=== PATIENT | female | born 1990 | race American Indian/Alaskan Native ===

== ENCOUNTER 2017-08-26 18:30 | Emergency (ER) | payer MEDICAID ==
[2017-08-26] MEDS ORDERED: ASPIRIN PO ONE (18:47)
[2017-08-26 19:12] LABS: Basophils % (Auto) 0.2 % (0.0-1.8); Eosinophils % (Auto) 0.4 % (0.0-4.3); Hemoglobin 12.6 gm/dl (10.1-14.3); Lymphocytes # (Auto) 2.2 K/mm3 (1.2-5.4); Lymphocytes % (Auto) 24.2 % (13.4-35.0); Mean Corpuscular HGB Conc 34 % (30-34); Mean Corpuscular Hemoglobin 31 pg (28-32); Mean Corpuscular Volume 92 fl (79-97); Monocytes # (Auto) 0.5 K/mm3 (0.0-0.8); Monocytes % (Auto) 5.8 % (0.0-7.3); Platelet Count 242 K/mm3 (140-440); Red Blood Count 4.03 M/mm3 (3.65-5.03); Red Cell Distribution Width 12.9 % (13.2-15.2)
[2017-08-26 19:35] LABS: BUN/Creatinine Ratio 21; Blood Urea Nitrogen 15 mg/dL (7-17); Calcium 9.7 mg/dL (8.4-10.2); Hemolysis Index 12
[2017-08-26 19:46] LABS: Free T4 (Free Thyroxine) 1.25 ng/dL (0.76-1.46)
[2017-08-26 21:07] LABS: Bacteria,Urine 1+ /HPF (Negative); Bilirubin,Urine NEG (Negative); Blood,Urine NEG (Negative); Color,Urine Yellow (Yellow); Protein,Urine <15 mg/dL mg/dL (Negative); Urobilinogen,Urine < 2.0 mg/dL (<2.0)
[2017-08-26 21:19] LABS: HCG Qualitative,Urine Negative (Negative)
[2017-08-27] MEDS ORDERED: ASPIRIN ONE (02:03)
--- NOTE | 2017-08-27 02:28 | Emergency Department Report ---
HPI - General Chief Complaint: Chest Pain Time Seen by Provider: 08/27/17 02:08 - HPI HPI: 26-year-old female presents to the ER with left-sided chest pain, started earlier this morning, pain was 8 out of 10, sharp without radiation. Patient denies any shortness of breath, nausea, vomiting, diaphoresis with her symptoms. Patient did not take any medications for these symptoms. Patient denies any alleviating or exacerbating factors. ED Past Medical Hx - Past Medical History Previous Medical History?: No Hx Hypertension: No - Surgical History Past Surgical History?: No - Social History Smoking Status: Never Smoker Substance Use Type: None - Medications Home Medications: Home Medications Medication Instructions Recorded Confirmed Last Taken Type Ketorolac [Toradol] 10 mg PO Q6H PRN #20 tablet 08/27/17 Unknown Rx ED Review of Systems ROS: Stated complaint: CHEST PAIN Other details as noted in HPI Comment: All other systems reviewed and negative Cardiovascular: chest pain Gastrointestinal: denies: abdominal pain, nausea, vomiting Physical Exam - Physical Exam Vital Signs: Vital Signs 08/26/17 08/27/17 08/27/17 18:43 01:05 01:15 Temperature 98.6 F Pulse Rate 92 H 84 Respiratory 18 13 Rate Blood Pressure 118/71 109/73 Blood Pressure [Left] O2 Sat by Pulse 100 86 98 Oximetry 08/27/17 08/27/17 08/27/17 01:28 01:31 01:37 Temperature 98.4 F Pulse Rate 96 H 87 Respiratory 19 18 Rate Blood Pressure 117/67 Blood Pressure 109/73 [Left] O2 Sat by Pulse 98 94 Oximetry 08/27/17 08/27/17 01:45 02:00 Temperature Pulse Rate 89 110 H Respiratory 17 17 Rate Blood Pressure 117/67 108/60 Blood Pressure [Left] O2 Sat by Pulse 99 99 Oximetry Physical Exam: - Physical Exam Physical Exam: - General Limitations: No Limitations General appearance: alert, in no apparent distress. - Head Head exam: Present: atraumatic, normocephalic - Eye Eye exam: Present: normal appearance - ENT ENT exam: Present: mucous membranes moist - Neck Neck exam: Present: normal inspection - Respiratory Respiratory exam: Present: normal lung sounds bilaterally. Absent: respiratory distress - Cardiovascular Cardiovascular Exam: Present: normal rhythm, normal rate. Absent: systolic murmur, diastolic murmur, rubs, gallop - GI/Abdominal GI/Abdominal exam: Present: soft, normal bowel sounds - Extremities Exam Extremities exam: Present: normal inspection - Back Exam Back exam: Present: normal inspection - Neurological Exam Neurological exam: Present: alert, oriented X3 - Psychiatric Psychiatric exam: normal affect and mood - Skin Skin exam: Present: warm, dry, intact, normal color. Absent: rash ED Course Vital Signs 08/26/17 08/27/17 08/27/17 18:43 01:05 01:15 Temperature 98.6 F Pulse Rate 92 H 84 Respiratory 18 13 Rate Blood Pressure 118/71 109/73 Blood Pressure [Left] O2 Sat by Pulse 100 86 98 Oximetry 08/27/17 08/27/17 08/27/17 01:28 01:31 01:37 Temperature 98.4 F Pulse Rate 96 H 87 Respiratory 19 18 Rate Blood Pressure 117/67 Blood Pressure 109/73 [Left] O2 Sat by Pulse 98 94 Oximetry 08/27/17 08/27/17 01:45 02:00 Temperature Pulse Rate 89 110 H Respiratory 17 17 Rate Blood Pressure 117/67 108/60 Blood Pressure [Left] O2 Sat by Pulse 99 99 Oximetry ED Medical Decision Making - Lab Data Result diagrams: 08/26/17 18:50 08/26/17 18:50 Critical care attestation.: If time is entered above; I have spent that time in minutes in the direct care of this critically ill patient, excluding procedure time. ED Disposition Clinical Impression: Chest pain Qualifiers: Chest pain type: other chest pain Qualified Code(s): R07.89 - Other chest pain Disposition: -01 TO HOME OR SELFCARE Is pt being admited?: No Does the pt Need Aspirin: No Condition: Stable Instructions: Chest Pain (ED) Prescriptions: Ketorolac [Toradol] 10 mg PO Q6H PRN #20 tablet PRN Reason: Pain Referrals: ANNE BUENO MD [Primary Care Provider] - 3-5 Days
[2017-08-27] MEDS ORDERED: MORPHINE IV ONE (02:32)
[2017-08-27] MEDS ORDERED: ZOFRAN IV ONE (02:32)
--- NOTE | 2017-08-27 03:07 | XRay Report ---
FINAL REPORT EXAM: XR CHEST 1V AP HISTORY: CHEST PAIN TECHNIQUE: AP portable view of the chest. PRIORS: None. FINDINGS: The cardiomediastinal silhouette appears normal. The lungs are clear. The bones and soft tissues are unremarkable. IMPRESSION: No evidence of acute cardiopulmonary disease.
--- NOTE | 2017-08-27 03:54 | Cat Scan Report ---
FINAL REPORT PROCEDURE: CT ANGIO CHEST TECHNIQUE: Computerized tomographic angiography of the chest was performed after the IV injection of iodinated nonionic contrast including image processing. The image data was postprocessed using 2-dimensional multiplanar reformatted (MPR) and 3-dimensional (MIP and/or volume rendered) techniques. HISTORY: CHEST PAIN COMPARISON: No prior studies are available for comparison. FINDINGS: Heart and pericardium: Normal. Thoracic aorta: Normal. Pulmonary vasculature: Normal. Lymph nodes: No enlarged thoracic lymph nodes. Lungs: Lungs are clear and expanded. There are no infiltrates, effusions or pneumothoraces. Pleural space: No effusion, thickening, or pneumothorax. Musculoskeletal structures: No significant abnormality. Upper abdominal structures: No significant abnormality. IMPRESSION: There is no pulmonary embolism. There is no thoracic aortic aneurysm or dissection. Lungs are clear.
[2017-08-27 03:57] VITALS: BP 103/64
== END 2017-08-27 04:32 | disposition home or self-care (01) ==
LOC: ED 18:30
DX: R07.89 Other chest pain (principal)
CPT/HCPCS: 36415; 71045; 71275; 80048; 81001; 81025; 84439; 84443; 84484; 85025; 85379; 93005; 93010; 96374; 96375; 99285; J2270; J2405; Q9967